=== PATIENT | male | born 1950 | race Two or more races ===

== ENCOUNTER 2019-01-18 12:52 | Emergency (ER) | payer OTHER ==
[~2019-01-18] VITALS: Ht 177.8 cm; Wt 88.5 kg
[2019-01-18] MEDS ORDERED: SODIUM CHLORIDE 0.9% 1,000 ML IV ONE (14:49)
[2019-01-18 14:59] LABS: Basophils # (auto) 0 uL; Eosinophils # (auto) 0 uL; Eosinophils % (auto) 0.1 % (0.0-7.0); Lymphocytes # (auto) 0.7 uL; Monocytes # (auto) 0.5 uL; Red Cell Distribution Width 13.1 % (11.8-14.3); White Blood Cell 6.6 10^3/uL (4.4-10.8)
[2019-01-18] MEDS ORDERED: ASPirin 81 mg TAB PO ONE (15:00)
[2019-01-18 15:01] LABS: Basophils % (auto) 0.5 % (0.0-2.0); Hemoglobin 16.4 g/dL (13.5-17.5); Lymphocytes % (auto) 10.2 % (10.0-50.0); Mean Corpuscular Hemoglobin 34.2 pg (28.0-32.0); Mean Corpuscular Hgb Conc. 34.2 g/dL (32.0-36.0); Monocytes % (auto) 7.2 % (0.0-12.0); Neutrophils # (auto) 5.4 uL; Platelet Count (auto) 181 10^3/uL (140-450)
[2019-01-18 15:11] LABS: Anion Gap 9 (5-15); Blood Urea Nitrogen 14 mg/dL (7-18); Calcium 9.2 mg/dL (8.5-10.1); Carbon Dioxide 24 mmol/L (21-32); Chloride 107 mmol/L (98-107); Glucose 98 mg/dL (74-106); Potassium 3.8 mmol/L (3.5-5.1); Sodium 140 mmol/L (136-145)
[2019-01-18 15:12] LABS: INR 1.08 (0.9-1.15); Partial Thromboplastin Time 25.9 sec (23.64-32.05)
[2019-01-18 15:19] LABS: Alanine Aminotransferase 38 U/L (16-61); Alkaline Phosphatase 58 U/L (45-117); Aspartate Aminotransferase 25 U/L (15-37); BUN/Creatinine Ratio 14.3; Bilirubin, Total 0.8 mg/dL (0.2-1.0); GFR African American 97 mL/min; GFR Non-African American 80 mL/min; Total Protein 7.7 g/dL (6.4-8.2)
[2019-01-18 16:38] LABS: Urine Bacteria NONE SEEN /hpf (None Seen); Urine Blood TRACE /uL (Negative); Urine Specific Gravity 1.012 (1.001-1.035); Urine WBC 1 /hpf (0 - 3)
[2019-01-18 20:00] VITALS: BP 153/93
[2019-01-18 20:30] LABS: Blood Alcohol < 3.0 mg/dL (0-5)
== END 2019-01-18 21:29 | disposition home or self-care (01) ==
LOC: ER 12:52
DX: R42 Dizziness and giddiness (principal); R55 Syncope and collapse; E78.5 Hyperlipidemia, unspecified; I10 Essential (primary) hypertension; E07.9 Disorder of thyroid, unspecified
CPT/HCPCS: 36415; 70450; 80053; 80320; 81001; 84484; 85025; 85610; 85730; 93005; 96360; 99284; J7030